=== PATIENT | female | born 1990 | race Two or more races ===

== ENCOUNTER 2023-03-02 02:15 | Emergency (ER) | payer OTHER ==
[~2023-03-02] VITALS: Ht 172.7 cm; Wt 86.2 kg
[2023-03-02] MEDS ORDERED: KETO10TA2 PO (02:25)
[2023-03-02] MEDS ORDERED: KETOROLAC TROMETHAMINE INJ 60 MG/2 ML VIAL IM ONE ×2 (02:29→02:30)
[2023-03-02 04:37] VITALS: BP 131/79; TEMP 97.2; O2SAT 98
== END 2023-03-02 04:38 | disposition home or self-care (01) ==
LOC: ER 02:20
DX: M79.601 Pain in right arm (principal); Z79.899 Other long term (current) drug therapy; V89.2XXA Person injured in unspecified motor-vehicle accident, traffic, initial encounter; Y93.89 Activity, other specified; Y92.89 Other specified places as the place of occurrence of the external cause; Y99.8 Other external cause status
CPT/HCPCS: 99283; 96372; 73060; J1885